=== PATIENT | male | born 1955 | race Caucasian/White ===

== ENCOUNTER 2018-08-24 17:49 | Emergency (ER) | payer BC ==
[2018-08-24] MEDS ORDERED: Oxymetazoline HCl 0.05% ( 15 ML ) ONE (18:54)
[2018-08-24] MEDS ORDERED: Promethazine HCl 25 MG/ML VIAL ONE (19:38)
[2018-08-24] MEDS ORDERED: Meclizine HCl 25 MG TAB ONE (19:38)
[2018-08-24] MEDS ORDERED: Diazepam 5 MG TAB ONE (21:05)
--- NOTE | 2018-08-24 21:46 | CT ---
CT OF BRAIN PERFORMED WITHOUT CONTRAST ENHANCEMENT: 08/24/18 HISTORY: Headaches, dizziness, facial and jaw pain. The ventricular and cisternal system shows fairly age appropriate change. No signs of intracerebral h emorrhage or extra-axial fluid collections. Mastoid air cells are clear. There is mucosal disease in the sphenoid sinus and some maxillary sinus mucosal disease. IMPRESSION: No acute intracranial abnormalities. Incidental note is made of some moderate sphenoid air cell mucos al change. POS: EM
== END 2018-08-24 21:23 | disposition home or self-care (01) ==
LOC: ERS 17:49
DX: H83.02 Labyrinthitis, left ear (principal)
CPT/HCPCS: 70450; 93005; 96365; J2550

== ENCOUNTER 2018-10-01 09:58 | Outpatient (CLI) | payer BC ==
--- NOTE | 2018-10-01 17:25 | MRI ---
MRI BRAIN WITH AND WITHOUT CONTRAST: 10/01/2018 HISTORY: Dizziness. Hearing loss in left ear for 1-2 months. COMPARISON: None. TECHNIQUE: Multiplanar, multisequence MR imaging of the brain is obtained with and without contrast, using an in ternal auditory canal protocol. FINDINGS: The diffusion weighted imaging demonstrates no evidence for acute infarction. Regional bone marrow signal intensity appears grossly unremarkable. The partially visualized right maxillary sinus is completely opacified. The mastoid air cells appear unremarkable. Thin section T2 weighted imaging demonstrates no evidence for a mass lesion at the level of the cereb ellopontine angle, internal auditory canal, cochlea, vestibule, or semicircular canals. Whole bearing post contrast imaging demonstrates no abnormal enhancement within the brain parenchyma. Thin section post contrast imaging demonstrates no abnormal enhancement involving the cerebellopontin e angle, IAC, cochlea, vestibule, and semicircular canals on either side. IMPRESSION: Grossly unremarkable contrast enhanced brain MRI, using the internal auditory canal protocol. POS: KASSANDRA
== END 2018-10-01 09:59 | disposition home or self-care (01) ==
LOC: SCSMRI 09:58
PROVIDERS: ATTEND Otolaryngology Plastic Surgery within the Head & Neck
DX: H90.5 Unspecified sensorineural hearing loss (principal)
CPT/HCPCS: 70553; 82565